=== PATIENT | female | born 1955 | race Caucasian/White ===

== ENCOUNTER → 2020-11-09 | Outpatient (REF) ==
--- NOTE | 2020-11-09 13:45 | REP ---
INDICATION: DDD COMPARISON: None. TECHNIQUE: AP and lateral views of the lumbosacral spine. FINDINGS: Lateral view demonstrates chronic appearing anterolisthesis at L4-5 of approximately 5 mm with associated hypertrophic facet changes and minimal disc space narrowing. Hypertrophic facet changes with endplate sclerosis and disc space narrowing also identified at the L5-S1 level. Remainder of the examination is essentially age-appropriate. IMPRESSION: Degenerative spondylosis primarily involving L4-5 and L5-S1. No acute fracture/compression injury or subluxation. <Electronically signed by Eugene Maharaj > 11/09/20 [id number]
== END ==
LOC: M RAD 13:18
PROVIDERS: ATTEND Internal Medicine
DX: M54.5 Low back pain (principal)